=== PATIENT | male | born 1935 | race Caucasian/White ===

== ENCOUNTER 2017-05-12 14:01 | Outpatient (CLI) | payer MEDICARE, OTHER ==
[~2017-05-12] VITALS: Ht 172.7 cm; Wt 79.4 kg
[~2017-05-12 14:01] MED LIST: ASP81TEC PO; CEPH500C PO; GLPZ5TCR; HCT25T; HCT25T PO; LVST20T; METF-380 PO; MPR22T TP; MTF500T; RAMI10CA PO; RMP5C; SITA100T PO; TRAM50TA2 PO; lisinopril/hctz PO
[2017-05-12 14:24] VITALS: BP 133/77
[2017-05-12] MEDS ORDERED: ASPI-808 PO (14:35)
[2017-05-12] MEDS ORDERED: HYDR25TA4 PO (14:35)
[2017-05-12] MEDS ORDERED: SITA100T12 PO (14:35)
[2017-05-12] MEDS ORDERED: RAMI10CA PO (14:35)
[2017-05-12] MEDS ORDERED: GLIP5TAB13 PO (14:35)
[2017-05-12] MEDS ORDERED: METF1000 PO (14:35)
[2017-05-12] MEDS ORDERED: DOXA8TAB73 PO (14:36)
[2017-05-12] MEDS ORDERED: LOVA40TA2 PO (14:36)
[2017-05-12] MEDS ORDERED: LEVO75TA6 PO (14:36)
== END 2017-05-12 14:25 | disposition home or self-care (01) ==
LOC: PREOP 14:01
PROVIDERS: ATTEND Surgery
DX: Z01.818 Encounter for other preprocedural examination (principal); Z11.2 Encounter for screening for other bacterial diseases; K40.90 Unilateral inguinal hernia, without obstruction or gangrene, not specified as recurrent
CPT/HCPCS: 87081

== ENCOUNTER 2017-05-14 07:19 | Day surgery (SDC) | payer MEDICARE, OTHER ==
[~2017-05-14] VITALS: Ht 172.7 cm; Wt 79.4 kg
[~2017-05-14 07:19] MED LIST changes: +ASPI-808 PO; +DOXA8TAB73 PO; +GLIP5TAB13 PO; +HYDR25TA4 PO; +LEVO75TA6 PO; +LOVA40TA2 PO; +METF1000 PO; +SITA100T12 PO
[2017-05-14] MEDS ORDERED: CATHETER FLUSH 10 ML SYR IV PRN (07:30)
[2017-05-14] MEDS ORDERED: ceFAZolin 2 GM IV Premixed 50 ML IV ONE (07:30)
[2017-05-14 08:13] VITALS: BP 122/75
[2017-05-14] MEDS: LACTATED RINGERS 1,000 ML IV PRN ×2 (08:52→11:15)
--- NOTE | 2017-05-14 09:16 | Progress Note-Pre Operative ---
Pre-Operative Progress Note H&P Reviewed The H&P was reviewed, patient examined and no changes noted. Time Seen by Provider: 09:11 Date H&P Reviewed: May 14, 2017 Time H&P Reviewed: 09:15 Pre-Operative Diagnosis: Incarcerated left inguinal hernia MARCIA VELASQUEZ DO May 14, 2017 09:16
[2017-05-14] MEDS ORDERED: LIDOCAINE/EPI 1%-1:200,000 (XYLOCAINE) 10 ML VIAL ONE (09:40)
[2017-05-14] MEDS ORDERED: fentaNYL INJECTION 100 MCG/2 ML AMP ONE (10:05)
[2017-05-14] MEDS ORDERED: proPOfol 200 MG/20 ML (DIPRIVAN) VIAL IV ONE (10:05)
[2017-05-14] MEDS ORDERED: ROCURONIUM 50 MG/5 ML (ZEMURON) VIAL IV ONE (10:05)
[2017-05-14] MEDS ORDERED: LIDOCAINE PF 2% 5 ML (XYLOCAINE) VIAL ONE (10:05)
[2017-05-14] MEDS ORDERED: SEVOFLURANE (ULTANE) 15 ML INHAL SOLN ONE ×2 (10:07→11:14)
[2017-05-14] MEDS ORDERED: PHENYLEPHRINE 100 MCG/ML 10 ML (ANESTHESIA) SYR ONE (10:30)
[2017-05-14] MEDS ORDERED: LACTATED RINGERS 1,000 ML IV ONE ×2 (11:14)
[2017-05-14] MEDS ORDERED: GLYCOPYRROLATE 0.2 MG/ML (ROBINUL) 2 ML VIAL ONE (11:29)
[2017-05-14] MEDS ORDERED: NEOSTIGMINE (BLOXIVERZ ) 1 MG/1ML 10 ML VIAL ONE (11:29)
--- NOTE | 2017-05-14 11:30 | Progress Note-Post Operative ---
Post-Operative Progess Note Surgeon (s)/Finance Broker (s) Surgeon MARCIA VELASQUEZ DO Finance Broker: Francoise Pre-Operative Diagnosis Incarcerated left inguinal hernia Post-Operative Diagnosis Recurrent Incarcerated Indirect left inguinal hernia, with direct inguinal hernia component and sliding hernia component Procedure & Operative Findings Date of Procedure 05/14/17 Procedure Performed/Findings LIH with mesh Anesthesia Type GET Estimated Blood Loss Estimated blood loss (mL): less than 10 ml Specimens/Packing Specimens Removed hernia sac MARCIA VELASQUEZ DO May 14, 2017 11:30
[2017-05-14] MEDS ORDERED: ACHD5005 PO (11:31)
--- NOTE | 2017-05-14 11:32 | Discharge Inst-Surgical ---
Discharge Inst-Surgical Depart Medication/Instructions New, Converted or Re-Newed RX: RX Given to Pt/Family Patient Instructions Follow up Appt: Make appointment for 1 week. Instructions: No lifting greater than 10 pounds. No strenuous activity. May shower in 24 hours, no tub bath or soaking. Use incentive spirometer at home as directed. No Smoking Skin/Wound Care: May remove bandages. You need to leave the white strips over incision on they will fall off on their own. Symptoms to Report: Appetite Changes, Extremity Discoloration, Numbness/Tingling, Swelling Increased , Bleeding Excessive, Eyesight Changes, Pain Increased, Urine Color Change, Constipation(Persistent), Fever over 101 degree F, Pain/Pressure in chest, Urinating Difficulty, Cough Up/Vomit Blood, Heart Beat Irreg/Pounding, Pain/ Pressure in jaw, Cramps in feet or legs, Lightheadedness, Pain/Pressure in shoulder, Diarrhea(Persistent), Memory Changes Suddenly, Questions/Concerns, Weight gain consecutive days, Dizziness/Fainting, Nausea/Vomiting, Shortness of Breath, Weight gain over 2 pounds If questions or concerns contact your physician Or seek help at emergency department. Activity Activity Instructions: Avoid Stress to Incision Driving Instructions: No Driving/Refer to Diet Discharge Diet: No Restrictions Diet After 24 Hours: Clear Liquid if Nauseous If Any Problems/Questions/Issu: Contact Your Physician, Go to Emergency Room Skin/Wound Care Infection Signs and Symptoms: Increased Redness, Foul Odor of Wound, Increased Drainage, Skin Itchy or Has a Rash, Increased Swelling, Temperature Above 101 F Bathing Instructions: Shower Stitches/Aramis/Dermabond Dis: Dermabond Ice Pack: Ice On and Off Site MARCIA VELASQUEZ DO May 14, 2017 11:32
[2017-05-14] MEDS: morphine INJ 10 MG/ML 1ML (SYR OR VIAL) IVP PRN ×2 (12:02→12:10)
[2017-05-14] MEDS ORDERED: ONDANSETRON 4 MG/2 ML (SDV) Z0FRAN IVP PRN (12:15)
[2017-05-14 12:45] VITALS: BP 121/78
[2017-05-14 13:15] VITALS: BP 117/59
[2017-05-14 13:45] VITALS: BP 120/72
[2017-05-14 14:35] VITALS: BP 120/72
--- NOTE | 2017-05-14 19:33 | OPERATIVE REPORT ---
DATE OF SERVICE: 05/14/2017 PREOPERATIVE DIAGNOSIS: Incarcerated left inguinal hernia. POSTOPERATIVE DIAGNOSIS: Incarcerated left inguinal hernia with a sliding hernia component, this was recurrent. PROCEDURE: Left inguinal herniorrhaphy with mesh placement. SURGEON: Santhosh Neal DO. RISK MANAGEMENT INTERNSHIP: oRdo Owusu DO. ANESTHESIA: General endotracheal tube. SPECIMEN: Hernia sac. BLOOD LOSS: Less than 10 mL. FLUIDS: Per anesthesia. POSTOPERATIVE CONDITION: Stable. INDICATION FOR PROCEDURE: The patient is an 82-year-old male who had a large bulge in left inguinal region, suddenly causing a little bit of pain and bulge was stuck out and getting bigger. This was different than previously. The patient denied previous surgery, but upon performing the surgery noted a very thin scar and found previous hernia repair on the inside. This was incarcerated indirect left inguinal hernia with sigmoid colon in the hernia sac and down towards the testicle. It was also sliding because the colon made a portion of the hernia wall. PROCEDURE NOTE: After informed consent was obtained, the patient was brought to the operating room, placed on table in supine position. He was sterilely prepped and draped in normal fashion. Local lidocaine was used to perform the ilioinguinal nerve block as well as pubic tubercle block and infiltrated left inguinal region with local and then made an incision with a #10 blade at a spot where we infiltrated some local in left inguinal region. I noted a previous very thin scar. The patient did not mention any previous left inguinal hernia surgery. Made an incision with a #15 blade, carried down through the skin into subcutaneous tissue, then deepened down subcutaneous tissue with Bovie electrocautery down to the fascia, then infiltrated external oblique fascia with local lidocaine and then incised external oblique fascia to the external inguinal ring with Bovie electrocautery, then started carefully trying to tease out the external oblique fascia away from the cord and cord structures getting under it and trying to get up superiorly and then around on the medial aspect, sound what looked like Prolene suture, not really holding anything together. This was carefully removed as much of the suture as possible. Continued to dissect under the external oblique fascia. Elected to get into the hernia sac with the Bovie electrocautery and then noted sigmoid colon stuck in the hernia sac, very large indirect inguinal hernia as well as a little bit of a floor defect, meaning there is a slightly direct inguinal hernia as well. Started pulling the sigmoid colon out of the hernia sac, but then noted that it was part of the hernia sac that was very attached, it was very hard to get this away and tried to dissect this away from the cord and cord structures slowly, carefully dissected this away. Finally, able to get the sigmoid colon out of the distal portion of the hernia sac and then pushed it up in and released some of attachments of it attached to the hernia sac. I pushed this up into the abdomen, then elected to close the hernia sac with 0 Vicryl pursestring suture taking care to push the colon out of the way, tied this down gently and then did another suture ligation with 0 Vicryl, cut this hernia sac off with Bovie electrocautery. The floor was a little bit weak, so I elected to close this with a [id number] 2-0 Vicryl, this closed nicely. I then elected to place a large Parietex left-sided mesh, trimmed a little bit to fit into the inguinal canal, sutured one to the pubic tubercle with 2-0 Vicryl and then placed the rest of it up under the external oblique fascia encircling the cord with a precut hole thereby recreating the internal inguinal ring. Copiously irrigated with normal saline, suctioned this out. The mesh laid down nicely and then elected to close the external oblique fascia with 3-0 Vicryl running suture thereby recreating the external inguinal ring. Then, closed Edward's fascia with 3-0 Vicryl three interrupted sutures and then closed the skin with 4-0 undyed Monocryl in running subcuticular fashion. Area was cleaned and dried and Dermabond placed as well as the dressing and the patient then transferred to recovery room in stable condition. Sponge, instrument and needle counts correct at the end of the case. Job ID: [id number] DocumentID: [id number] Dictated Date: 05/14/2017 11:28:33 Information Coordinator Date: 05/14/2017 16:28:17 Dictated By: DO TALHA MARTINEZ
--- OUTSIDE RECORDS SUMMARY | 2017-05-15 10:39 | XMS REPORT ---
Author Author Nahed Mcguire [facility] Address [address] [place], [place] [id number] Care Team Providers Care Puzzle Assembler Name Role Phone Nahed Mcguire PCP Unavailable Allergies and Adverse Reactions Name Reaction Notes NO KNOWN DRUG ALLERGIES Plan of Treatment Planned Activity Comments Planned Date Planned Time Plan/Goal PSA TOTAL 02/12/2016 12:00 AM PSA total 02/06/2014 12:00 AM Medications Active Name Start Date Estimated Completion Date SIG Comments metformin oral Januvia oral glipizide 5 mg oral tablet extended release 24hr ramipril oral hydrochlorothiazide oral lovastatin oral levothyroxine 75 mcg oral tablet doxazosin oral aspirin 325 mg oral tablet Problem List Description Status Onset Benign Hypertrophy of Prostate (BPH) Active 02/21/2014 Drug therapy Active 02/20/2015 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 02/20/2015 Vital Signs Date Time BP-Sys(mm[Hg] BP-Lindsey(mm[Hg]) HR(bpm) RR(rpm) Temp WT HT HC BMI BSA BMI Percentile O2 Sat(%) 02/20/2015 9:50:00 AM 178 lbs 67 in 27.88 kg/m2 1.95 m2 02/21/2014 8:55:00 AM 178 lbs 67.5 in 27.467 kg/m 1.9609 m Social History Name Description Comments Alcohol Never Tobacco Never smoker History of Procedures Date Ordered Description Order Status 02/12/2015 12:00 AM ASSAY OF PSA TOTAL Reviewed 02/20/2015 10:07 AM URINALYSIS AUTO W/O SCOPE Reviewed 02/21/2014 9:40 AM URINALYSIS AUTO W/O SCOPE Reviewed Results Summary Data and Description Results 02/21/2014 9:40 AM Bilirub Ur Ql Strip -VE Glucose Ur-sCnc TRACE Hgb Ur Ql Strip -VE Ketones Ur Ql Strip -VE Nitrite Ur Ql Strip -VE pH Ur-LsCnc 6.0 Prot Ur Ql Strip -VE Sp Gr Ur Qn 1020 Urobilinogen Ur-mCnc -VE WBC Est Ur Ql Strip - VE 02/20/2015 10:07 AM Clarity Ur -VE Color Ur -VE Glucose Ur-sCnc -VE Bilirub Ur Ql Strip -VE Ketones Ur Ql Strip -VE Sp Gr Ur Qn 1020 Hgb Ur Ql Strip -VE pH Ur-LsCnc 5.0 Prot Ur Ql Strip -VE Urobilinogen Ur-mCnc -VE Nitrite Ur Ql Strip - VE WBC Est Ur Ql Strip -VE History Of Immunizations Not available. 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
--- OUTSIDE RECORDS SUMMARY | 2017-05-15 10:39 | XMS REPORT ---
Author Author Nahed Mcguire Organization [facility] Address [address] [place], [place] [id number] Care Team Providers Care Shop Tailor Name Role Phone Nahed Mcguire PCP Unavailable Allergies and Adverse Reactions Name Reaction Notes NO KNOWN DRUG ALLERGIES Plan of Treatment Planned Activity Comments Planned Date Planned Time Plan/Goal ASSAY OF PSA TOTAL 02/12/2015 12:00 AM ASSAY OF PSA TOTAL 02/06/2014 12:00 AM Medications Active Name Start Date Estimated Completion Date SIG Comments metformin oral Januvia oral glipizide 5 mg oral tablet extended release 24hr ramipril oral hydrochlorothiazide oral lovastatin oral levothyroxine 75 mcg oral tablet doxazosin oral aspirin 325 mg oral tablet Problem List Description Status Onset Benign Hypertrophy of Prostate (BPH) Active 02/21/2014 Vital Signs Date Time BP-Sys(mm[Hg] BP-Lindsey(mm[Hg]) HR(bpm) RR(rpm) Temp WT HT HC BMI BSA BMI Percentile O2 Sat(%) 02/21/2014 8:55:00 AM 178 lbs 67.5 in 27.47 kg/m2 1.96 m2 Social History Name Description Comments Alcohol Never Tobacco Never smoker History of Procedures Date Ordered Description Order Status 02/21/2014 9:40 AM URINALYSIS AUTO W/O SCOPE Reviewed Results Summary Data and Description Results 02/21/2014 9:40 AM Bilirub Ur Ql Strip -VE Glucose Ur-sCnc TRACE Hgb Ur Ql Strip -VE Ketones Ur Ql Strip -VE Nitrite Ur Ql Strip -VE pH Ur-LsCnc 6.0 Prot Ur Ql Strip -VE Sp Gr Ur Qn 1020 Urobilinogen Ur-mCnc -VE WBC Est Ur Ql Strip - VE History Of Immunizations Not available. History of Past Illness Name Date of Onset Comments Benign Hypertrophy of Prostate (BPH) 02/21/2014 BPH (benign prostatic hypertrophy) Feb 06 2014 2:59PM Benign Hypertrophy of Prostate (BPH) Feb 21 2014 8:56AM Screening for prostate cancer Feb 12 2015 9:05AM BPH (benign prostatic hypertrophy) Feb 12 2015 9:05AM Payers Insurance Name Company Name Plan Name Plan Number Policy Number Policy Group Number Start Date Medicare Part B [employer] [place] [id number] N/A [facility] [id number] N/A History of Encounters Visit Date Visit Type Provider 02/21/2014 Office visit Nahed Mcguire MD
--- OUTSIDE RECORDS SUMMARY | 2017-05-15 10:39 | XMS REPORT ---
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 Inguinal hernia, left Active 03/03/2016 Vital Signs Date Time BP-Sys(mm[Hg] BP-Lindsey(mm[Hg]) HR(bpm) RR(rpm) Temp WT HT HC BMI BSA BMI Percentile O2 Sat(%) 03/03/2016 8:29:00 AM 126 mmHg 72 mmHg 74 bpm 18 rpm 97.6 F 173 lbs 67 in 27.10 kg/m2 1.93 m2 100 % 02/20/2015 9:50:00 AM 178 lbs 67 in 27.8785 kg/m 1.9537 m 02/21/2014 8:55:00 AM 178 lbs 67.5 in 27.47 kg/m2 1.96 m2 Social History Name Description Comments Alcohol Never Tobacco Never smoker History of Procedures Date Ordered Description Order Status 02/12/2015 12:00 AM ASSAY OF PSA TOTAL Reviewed 02/20/2015 10:07 AM URINALYSIS AUTO W/O SCOPE Reviewed 02/28/2016 12:00 AM ASSAY OF PSA TOTAL Reviewed 03/03/2016 12:08 PM URINALYSIS AUTO W/O SCOPE Reviewed 02/21/2014 9:40 [...] VE WBC Est Ur Ql Strip -VE 03/03/2016 12:07 PM Clarity Ur CLEAR Color Ur --------- Glucose Ur-sCnc -VE Bilirub Ur Ql Strip -VE Ketones Ur Ql Strip -VE Sp Gr Ur Qn 1010 Hgb Ur Ql Strip -VE pH Ur-LsCnc 6.0 Prot Ur Ql Strip -VE Urobilinogen Ur-mCnc -VE Nitrite Ur Ql Strip -VE WBC Est Ur Ql Strip -VE History Of Immunizations Not available. 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 Inguinal hernia, left 03/03/2016 BPH (benign prostatic hypertrophy) Feb 06 2014 [...] 3:02PM Drug therapy Feb 12 2016 3:02PM Drug therapy Feb 28 2016 1:30PM BPH (benign prostatic hypertrophy) Feb 28 2016 1:30PM Screening for prostate cancer Feb 28 2016 1:30PM Adenofibromatous hypertrophy of prostate Stable Mar 03 2016 8:32AM Drug therapy Mar 03 2016 8:32AM Recurrent Inguinal hernia, left Stable Mar 03 2016 8:32AM Payers Insurance Name Company Name Plan Name Plan Number Policy Number Policy Group Number Start Date Medicare Part B [employer] [place] [id number] N/A [employer] Medicare [employer] Medicare Supplement [id number] N/A [facility] [id number] N/A History of Encounters Visit Date Visit Type Provider 03/03/2016 Office visit V Maryellen Mcguire MD 02/20/2015 Office visit V Maryellen Mcguire MD 02/21/2014 Office visit V Maryellen Mcguire MD
--- OUTSIDE RECORDS SUMMARY | 2017-05-15 10:40 | XMS REPORT ---
Author Author Nahed Mcguire [facility] Address [address] [place], [place] [phone] Care Team Providers Care Scrap Hoist Operator Name Role Phone Nahed Mcguire PCP Unavailable Allergies and Adverse Reactions Name Reaction Notes NO KNOWN DRUG ALLERGIES Plan of Treatment Planned Activity Comments Planned Date Planned Time Plan/Goal PSA TOTAL 02/12/2016 12:00 AM PSA TOTAL 02/28/2016 12:00 AM PSA total 02/06/2014 12:00 AM [...] for prostate cancer Feb 28 2016 1:30PM Payers Insurance Name Company Name Plan Name Plan Number Policy Number Policy Group Number Start Date Medicare Part B [employer] [place] [id number] N/A [facility] [id number] N/A History of Encounters Visit Date Visit Type Provider 02/20/2015 Office visit Nahed Mcguire MD 02/21/2014 Office visit V Maryellen Mcguire MD
--- OUTSIDE RECORDS SUMMARY | 2017-05-15 10:40 | XMS REPORT ---
Author Author Nahed Mcguire Organization [facility] Address [address] [place], [place] [phone] Care Team Providers Care Laser Engraver Name Role Phone Nahed Mcguire PCP Unavailable Allergies and Adverse Reactions Name Reaction Notes NO KNOWN DRUG ALLERGIES Plan of Treatment Planned Activity Comments Planned Date Planned Time Plan/Goal ASSAY OF PSA TOTAL 02/06/2014 12:00 AM [...] urinary tract symptoms Feb 20 2015 9:50AM Payers Insurance Name Company Name Plan Name Plan Number Policy Number Policy Group Number Start Date Medicare Part B [employer] [place] [id number] N/A [facility] [id number] N/A History of Encounters Visit Date Visit Type Provider 02/20/2015 Office visit Nahed Mcgurie MD 02/21/2014 Office visit Nahed Mcguire MD
--- OUTSIDE RECORDS SUMMARY | 2017-05-15 10:40 | XMS REPORT | Continuity of Care Document ---
Author Author [facility] Organization [facility] Address Unknown Phone Unavailable Allergies There is no data. Medications There is no data. Problems There is no data. Procedures There is no data. Results There is no data. Encounters ACCT No. Visit Date/Time Discharge Status Pt. Type Provider Facility Loc./Unit Complaint [id number] 11/23/2012 09:36:00 11/23/2012 10:50:00 DIS Emergency [id number] 05/14/2017 09:16:00 Document Registration [id number] 03/03/2016 09:26:45 03/03/2016 23:59:59 CLS Outpatient [facility], V S [id number] 02/20/2015 10:17:12 02/20/2015 23:59:59 CLS Outpatient Maynor, V S [id number] 02/21/2014 09:36:12 02/21/2014 23:59:59 CLS Outpatient Maynor, V S
== END 2017-05-14 14:35 | disposition home or self-care (01) ==
LOC: SDC 07:19
PROVIDERS: ATTEND Surgery
DX: K40.31 Unilateral inguinal hernia, with obstruction, without gangrene, recurrent (principal); E11.9 Type 2 diabetes mellitus without complications; I10 Essential (primary) hypertension; E78.5 Hyperlipidemia, unspecified; E03.9 Hypothyroidism, unspecified; Z79.84 Long term (current) use of oral hypoglycemic drugs; Z79.82 Long term (current) use of aspirin; Z79.899 Other long term (current) drug therapy
CPT/HCPCS: 82962; 94664

== ENCOUNTER → 2019-11-24 | Outpatient (CLI) | payer MEDICARE ==
[~2019-11-24] MED LIST changes: +ACHD5005 PO; +METF-399 PO; -METF1000 PO; +RAMI10CA69 PO
--- NOTE | 2019-11-24 14:39 | Diagnostic Imaging Report ---
EXAMINATION: Right hip at 12:43 p.m. INDICATION: Fell, hip pain. FINDINGS: Two views were obtained. There are no prior studies available for comparison. There does appear to be a nondisplaced fracture extending to the superior margin of the greater trochanter. CT will be recommended to confirm this. No other fracture or acute bony abnormality is noted. 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 The soft tissues are unremarkable. IMPRESSION: 1. There does appear to be a nondisplaced fracture of the greater trochanter of the right femur. CT will be recommended to confirm this. 2. There is no acute bony abnormality noted otherwise. 3. These results were called to Dr. Robson Laird at the time of this dictation. CRITICAL FINDING Dictated by: Dictated on workstation # [id number]
== END ==
LOC: RAD 12:30
PROVIDERS: ATTEND Nurse Practitioner Family
DX: M25.551 Pain in right hip (principal); W19.XXXA Unspecified fall, initial encounter
CPT/HCPCS: 73502